=== PATIENT | male | born 1930 | race Caucasian/White ===

== ENCOUNTER 2018-06-15 22:41 | Emergency (ER) | payer OTHER ==
[~2018-06-15] VITALS: Ht 165.1 cm; Wt 73.9 kg
[2018-06-15] MEDS ORDERED: CALCITRIOL0.25 MCG (23:56)
[2018-06-15] MEDS ORDERED: TORSEMIDE5 MG (23:57)
[2018-06-15] MEDS ORDERED: METROPOLOL (23:57)
[2018-06-15] MEDS ORDERED: DIOVAN40 MG (23:58)
[2018-06-15] MEDS ORDERED: AMLODIPINE BESY10 MG (23:59)
[2018-06-15] MEDS ORDERED: HYDROCODON-ACE1 EAC5 (23:59)
[2018-06-16] MEDS ORDERED: MOBIC7.5 MG PO (01:27)
== END 2018-06-16 01:37 | disposition home or self-care (01) ==
LOC: ER 22:41
DX: S86.811A Strain of other muscle(s) and tendon(s) at lower leg level, right leg, initial encounter (principal); X50.9XXA Other and unspecified overexertion or strenuous movements or postures, initial encounter; Y93.89 Activity, other specified; Y92.89 Other specified places as the place of occurrence of the external cause; Y99.8 Other external cause status